=== PATIENT | male | born 1970 | race Caucasian/White ===

== ENCOUNTER 2016-11-09 09:43 | Inpatient (IN) | payer OTHER ==
[~2016-11-09] VITALS: Ht 172.7 cm; Wt 96.8 kg
[2016-11-09] MEDS ORDERED: SODIUM CHLORIDE 0.9% 1000ML 500 ML IV STA (10:20)
[2016-11-09] MEDS ORDERED: SODIUM CHLORIDE 0.9% 1000ML 1,000 ML IV STA (10:20)
[2016-11-09 10:41] LABS: INR 1.1 (0.9-1.1); PARTIAL THROMBOPLASTIN RATIO 0.9; PROTHROMBIN TIME (PATIENT) 11.4 SECONDS (9.0-12.0)
--- NOTE | 2016-11-09 10:41 | DIAGNOSTIC IMAGING REPORT ---
CHEST ONE VIEW PORTABLE CLINICAL HISTORY: Overdose dyspnea COMPARISON STUDY: None FINDINGS: Poor inspiratory volumes. Possible parenchymal infiltrate left base. Mild prominence pulmonary vasculature. IMPRESSION: Mild pulmonary vascular congestion.] Clavicle a parenchymal infiltrate versus atelectasis left base. Electronically signed by: Bipin Felder M.D. 11/09/2016 10:40 AM Dictated Date/Time: 11/09/2016 10:39 AM
[2016-11-09 10:46] LABS: ALT/SGPT 94 U/L (12-78); AST/SGOT 38 U/L (15-37); BLOOD UREA NITROGEN 12 mg/dl (7-18); BUN/CREATININE RATIO 8.6 (10-20); CALCIUM 8.2 mg/dl (8.5-10.1); CARBON DIOXIDE 29 mmol/L (21-32); CHLORIDE 107 mmol/L (98-107); GLUCOSE 91 mg/dl (70-99); POTASSIUM 3.7 mmol/L (3.5-5.1); SODIUM 141 mmol/L (136-145)
[2016-11-09 10:48] LABS: HEMATOCRIT 44.9 % (42-52); MEAN CELL VOLUME 82.7 fL (80-100); MEAN CORPUSCULAR HEMOGLOBIN 30.4 pg (25-34); MEAN CORPUSCULAR HGB CONC 36.7 g/dl (32-36); MEAN PLATELET VOLUME 9.4 fL (7.4-10.4); PLATELET COUNT 205 K/uL (130-400); RED BLOOD COUNT 5.43 M/uL (4.7-6.1)
[2016-11-09 10:50] LABS: ALKALINE PHOSPHATASE 92 U/L (45-117)
[2016-11-09] MEDS ORDERED: CEFTRIAXONE SOD INJ 1 GM ADDVIAL IV STA (10:52)
[2016-11-09] MEDS ORDERED: ONDA4TAB46 PO (11:10)
[2016-11-09] MEDS ORDERED: BENZ100C84 PO (11:10)
[2016-11-09] MEDS ORDERED: TRAM-10 PO (11:10)
[2016-11-09] MEDS ORDERED: RIZA10TA18 PO (11:10)
[2016-11-09] MEDS ORDERED: [UNRECOGNIZED DRUG - CODE] PO (11:10)
[2016-11-09] MEDS ORDERED: CPR500 PO (11:10)
[2016-11-09] MEDS ORDERED: DICL75TA2 PO (11:10)
[2016-11-09] MEDS ORDERED: CEFU500T16 PO (11:10)
[2016-11-09] MEDS ORDERED: CLC/300 PO (11:10)
[2016-11-09] MEDS ORDERED: MELO15TA4 PO (11:10)
[2016-11-09] MEDS ORDERED: LEVO1TAB33 PO (11:10)
[2016-11-09] MEDS ORDERED: CYCL5TAB PO (11:10)
[2016-11-09] MEDS ORDERED: HYDR-4079 PO (11:10)
[2016-11-09] MEDS ORDERED: DIPH1LIQ PO (11:17)
[2016-11-09] MEDS ORDERED: CLR10 PO (11:17)
[2016-11-09] MEDS ORDERED: ASPI81TA28 PO (11:17)
[2016-11-09] MEDS ORDERED: DIPH1TAB PO (11:17)
[2016-11-09] MEDS ORDERED: TRAZ50TA35 PO (11:24)
[2016-11-09] MEDS ORDERED: HYDR50CA2 PO ×2 (11:24→12:26)
[2016-11-09] MEDS ORDERED: RISP1TAB68 PO (11:24)
[2016-11-09] MEDS ORDERED: NALT50TA5 PO (11:24)
[2016-11-09 11:29] LABS: URINE APPEARANCE CLEAR (CLEAR); URINE BILIRUBIN NEG (NEG); URINE COLOR DK YELLOW; URINE NITRITE NEG (NEG); URINE SPECIFIC GRAVITY 1.042 (1.000-1.030); UROBILINOGEN NEG (NEG); ZZURINE CULT IF INDIC CATH NO
[2016-11-09 11:30] LABS: MANUAL MICROSCOPIC REQUIRED? NO; REVIEW REQ? NO
[2016-11-09] MEDS ORDERED: DEXTROSE 5% IV ONE (11:30)
[2016-11-09] MEDS ORDERED: ACETYLCYSTEINE IV ONE (11:30)
--- NOTE | 2016-11-09 11:30 | DIAGNOSTIC IMAGING REPORT ---
HEAD CT NONCONTRAST CT DOSE: 614.27 mGy.cm HISTORY: Mental status change OVERDOSE TECHNIQUE: Multiaxial CT images of the head were performed without the use of intravenous contrast. Comparison: None. Findings: The paranasal sinuses and mastoid air cells are clear. The calvarium and skull base are intact. The ventricles and sulci are within normal limits. There is no mass, hematoma, midline shift, or acute infarct. Impression: No acute intracranial abnormality. Electronically signed by: Bipin Felder M.D. 11/09/2016 11:29 AM Dictated Date/Time: 11/09/2016 11:28 AM
[2016-11-09 12:00] LABS: COCAINE,URINE NEG (NEG)
[2016-11-09] MEDS ORDERED: ACETYLCYSTEINE IV SCH ×2 (12:31→16:33)
[2016-11-09] MEDS ORDERED: DEXTROSE 5% IV SCH ×2 (12:31→16:33)
--- NOTE | 2016-11-09 13:34 | History and Physical ---
History & Physical Date & Time of Service: Nov 09, 2016 at 13:14 Chief Complaint: Overdose Primary Care Physician: No Doctor, Assigned History of Present Illness Source: patient This is a 45 y/o male with PMHx of Depression/Anxiety with prior suicide attempts who presents to the ED after an overdose that occurred sometime last night. She found several empty bottles of pills last night around 1715. The full list of medications ingested is on paper chart. The exact time that the patient took the medications is unknown however suspects it was sometime around 1700. Pt was also drinking beer all afternoon/evening. suspects he may have drank up to 20-30 beers. The patient was found in his vehicle this morning, where he spent the whole night. He has admitted to drinking alcohol and taking pills. Per 302 petition, the patient's stated that the patient has made comments of hanging himself in the past. She also stated that the patient threatened to kill her and shoot her coworkers. The patient was discharged from [facility] last week on Thursday. Per , she and her are recently after 16 years of marriage and he has not been handling it well. Patient unable to add additional history at this point due to altered mental status. In the ED, vitals are stable. Labs + mildly elevated LFTs. ETOH level 86. Tylenol level 12. CXR + mild pulm vasc congestion and L base infiltrate vs. atelectasis. Head CT is negative. EKG: NSR with no QTc prolongation. Pt is somnolent but stable and will be admitted for further evaluation and treatment. Past Medical/Surgical History Medical Problems: (1) Anxiety Status: Chronic (2) Depression Status: Chronic (3) Insomnia Status: Chronic Family History Patient reports no known family medical history. Social History Smoking Status: Never Smoker Alcohol Use: heavy (per family, up to 20-30 beers in one day (not every day)) Marital Status: in relationship () Housing status: lives alone Allergies Coded Allergies: Prednisone (Unverified Allergy, Unknown, DOES NOT TOLERATE, 11/09/16) Home Medications Scheduled Naltrexone Hcl (Naltrexone Hcl), 50 MG PO DAILY Risperidone (Risperdal), 1 MG PO BID Scheduled PRN Hydroxyzine Pamoate (Vistaril), 50 MG PO QID PRN for Anxiety Trazodone Hcl (Trazodone), 50 MG PO HS PRN for Sleep Review of Systems Unable to obtain ROS due to AMS Physical Exam Vital Signs Date Time Temp Pulse Resp B/P Pulse Ox O2 Delivery O2 Flow Rate FiO2 11/09/16 10:35 96 Nasal Cannula 2.0 11/09/16 10:13 86 21 98 11/09/16 10:10 111/88 11/09/16 09:58 94 11/09/16 09:53 36.6 89 16 111/88 90 Room Air 11/09/16 09:49 128/91 General Appearance: WD/WN, no apparent distress, + pertinent finding (Pt is laying in bed appearing somnolent ) Head: normocephalic, atraumatic Eyes: normal inspection, PERRL ENT: hearing grossly normal Neck: supple Respiratory/Chest: chest non-tender, lungs clear, normal breath sounds, no respiratory distress Cardiovascular: regular rate, rhythm, no edema, no murmur Abdomen/GI: normal bowel sounds, non tender, soft Back: normal inspection Extremities/Musculoskelatal: normal inspection, no calf tenderness, no pedal edema Neurologic/Psych: oriented x 3, + pertinent finding (arousable; very drowsy/ somnolent ) Skin: normal color, warm/dry Diagnostics Laboratory Results Results Past 24 Hours Test 11/09/16 09:50 11/09/16 10:44 11/09/16 10:59 Range/Units White Blood Count 5.60 4.8-10.8 K/uL Red Blood Count 5.43 4.7-6.1 M/uL Hemoglobin 16.5 14.0-18.0 g/dL Hematocrit 44.9 42-52 % Mean Corpuscular Volume 82.7 80-100 fL Mean Corpuscular Hemoglobin 30.4 25-34 pg Mean Corpuscular Hemoglobin Concent 36.7 32-36 g/dl RDW Standard Deviation 37.4 36.4-46.3 fL RDW Coefficient of Variation 12.5 11.5-14.5 % Platelet Count 205 130-400 K/uL Mean Platelet Volume 9.4 7.4-10.4 fL Prothrombin Time 11.4 9.0-12.0 SECONDS Prothromb Time International Ratio 1.1 0.9-1.1 Activated Partial Thromboplast Time 24.2 21.0-31.0 SECONDS Partial Thromboplastin Ratio 0.9 Sodium Level 141 136-145 mmol/L Potassium Level 3.7 3.5-5.1 mmol/L Chloride Level 107 98-107 mmol/L Carbon Dioxide Level 29 21-32 mmol/L Anion Gap 5.0 3-11 mmol/L Blood Urea Nitrogen 12 7-18 mg/dl Creatinine 1.40 0.60-1.40 mg/dl Estimated GFR () 70.3 Estimated GFR (Non- 60.7 BUN/Creatinine Ratio 8.6 10-20 Random Glucose 91 70-99 mg/dl Calcium Level 8.2 8.5-10.1 mg/dl Total Bilirubin 0.7 0.2-1 mg/dl Aspartate Amino Transf (AST/SGOT) 38 15-37 U/L Alanine Aminotransferase (ALT/SGPT) 94 12-78 U/L Alkaline Phosphatase 92 45-117 U/L Troponin I < 0.015 0-0.045 ng/ml Total Protein 7.8 6.4-8.2 gm/dl Albumin 3.8 3.4-5.0 gm/dl Globulin 4.0 2.5-4.0 gm/dl Albumin/Globulin Ratio 1.0 0.9-2 Salicylates Level 5.2 2.8-20 mg/dl Acetaminophen Level 12 10-30 ug/ml Ethyl Alcohol mg/dL 86.0 0-3 mg/dl Urine Color DK YELLOW Urine Appearance CLEAR CLEAR Urine pH 5.0 4.5-7.5 Urine Specific [place] 1.042 1.000-1.030 Urine Protein TRACE NEG Urine Glucose (UA) NEG NEG Urine Ketones TRACE NEG Urine Occult Blood NEG NEG Urine Nitrite NEG NEG Urine Bilirubin NEG NEG Urine Urobilinogen NEG NEG Urine Leukocyte Esterase NEG NEG Urine WBC (Auto) 1-5 0-5 /hpf Urine RBC (Auto) 0-4 0-4 /hpf Urine Hyaline Casts (Auto) 5-10 0-5 /lpf Urine Epithelial Cells (Auto) 10-20 0-5 /lpf Urine Bacteria (Auto) NEG NEG Urine Methadone, Qualitative NEG NEG Ur Amphetamine/Methamphetamine NEG NEG Urine Cocaine Metabolite NEG NEG Urine Marijuana (THC) NEG NEG Diagnostic Radiology CXR IMPRESSION: Mild pulmonary vascular congestion.] Clavicle a parenchymal infiltrate versus atelectasis left base CT HEAD IMPRESSION: No acute intracranial abnormality. EKG EKG: NSR at 89 bpm with no acute abnormalities noted; no prior EKG available for comparison Impression Assessment and Plan INTENTIONAL MULTI-DRUG OVERDOSE took assortment of pills along with alcohol last night; h/o anxiety/depression/ suicide attempt; recently from ; discharged from [facility] last week; pt has 302 order (in chart) -admit to telemetry -vitals are stable; EKG NSR -LFTs mildly elevated -Tox screen-pending -recheck labs and EKG @1600 -cont IVF and acetylcysteine protocol -hold all meds for now -one-on-one observation; suicide precautions -consult psychDr. Joseph-pending input -monitor INFILTRATES ON CXR; POSSIBLE ASPIRATION PNEUMONIA -CXR + mild pulm vasc congestion and L base infiltrate vs. atelectasis -start empiric Rocephin -monitor DVT PROPHYLAXIS -subq Lovenox CODE STATUS -FULL CODE DISPO -Pt seen in collaboration with Dr. Tabor. Please see his addendum foe further details. Thanks! Attending Addendum Pt was seen and examined. Agreed with Moni's ALDO exam, assessment and plan. 45 y/o male with PMHx of Depression/Anxiety, suicide attempts in the past was brought to the ED after an overdose that occurred last night. found several empty bottles of pills. The list of medications ingested is on his paper chart. he also drank a lot of alcohol last night. He made comments that he would hang himself, kill his and co-worker. Pt lying in bed very lethargy. Vitals are stable. General- drowsy, unable to keep eyes open Head- atraumatic Eyes- PERRL, unable to keep eyes open ENT- oropharynx clear Neck- supple, no JVD Lungs- clear to auscultation and percussion Heart- regular rhythm; no murmur Abdomen- normal bowel sounds, soft Extremities- no calf tenderness Neuro- drowsy, no facial palsy; no dysarthria Skin- warm & dry A/P INTENTIONAL DRUG OVERDOSE Took unknown quantity of multiple medications Will admit to telemetry Will monitor VS Repeat CMP and EKG @ 1600 cont IVF and acetylcysteine protocol Will watch him for volume overload one-on-one observation suicide precautions Cannot sign AMA consult psych, Dr. Turk-pending input I reviewed Lab, imaging and EKG Please refer to Moni's PA documentation for other problems Deepthi Tabor MD VTE Prophylaxis VTE Risk Assessment Done? Y/N: Yes Risk Level: Moderate
[2016-11-09 14:02] VITALS: BP 126/93; PULSE 96; TEMP 36.7; O2SAT 97; Ht 172.7 cm; Wt 96.8 kg
--- NOTE | 2016-11-09 14:18 | EMERGENCY ROOM VISIT NOTE ---
History Report prepared by Marti: Kenneth Brown Under the Supervision of: Dr. Jesse Orr M.D. First contact with patient: 10:12 Chief Complaint: OVERDOSE (INTENTIONAL) Stated Complaint: OVERDOSE History of Present Illness The patient is a 45 year old male who presents to the Emergency Room with complaints of an acute overdose that occurred sometime last night. The exact time that the patient took the medications is unknown. The patient was found in his vehicle this morning, where he spent the whole night. He has admitted to drinking alcohol and taking pills. The patient's found several empty bottles of pills last night. Per 302 petition, the patient's stated that the patient has made comments of hanging himself. She also stated that the patient threatened to kill her and shoot her coworkers. The patient was discharged from [facility] last week. When asked if he wants to kill himself the patient does not give a clear answer. History is limited secondary to mental status of the patient. Source of History: patient, other (302 petition) Onset: last night Position: other (global) Quality: other (intentional overdose) Timing: other (acute) Review of Systems ROS is limited secondary to mental status of the patient. Past Medical & Surgical Medical Problems: (1) Anxiety (2) Depression (3) Insomnia (4) Overdose Family History Patient reports no known family medical history. Social History Smoking Status: Never Smoker Marital Status: Current/Historical Medications Scheduled Naltrexone Hcl (Naltrexone Hcl), 50 MG PO DAILY Risperidone (Risperdal), 1 MG PO BID Scheduled PRN Hydroxyzine Pamoate (Vistaril), 50 MG PO QID PRN for Anxiety Trazodone Hcl (Trazodone), 50 MG PO HS PRN for Sleep Allergies Coded Allergies: Prednisone (Unverified Allergy, Unknown, DOES NOT TOLERATE, 11/09/16) Physical Exam Vital Signs Date Time Temp Pulse Resp B/P Pulse Ox O2 Delivery O2 Flow Rate FiO2 11/09/16 12:07 84 17 141/91 97 Room Air 11/09/16 10:35 96 Nasal Cannula 2.0 11/09/16 10:13 86 21 98 11/09/16 10:10 111/88 11/09/16 09:58 94 11/09/16 09:53 36.6 89 16 111/88 90 Room Air 11/09/16 09:49 128/91 Physical Exam GENERAL: Patient is in no acute distress. HEENT: No acute trauma, normocephalic atraumatic, mucous membranes are dry, no nasal congestion, no scleral icterus, pupils are equal and reactive to light, NECK: No stridor, no adenopathy, no meningismus, trachea is midline. LUNGS: Clear to auscultation bilaterally, no wheeze, no rhonchi, breath sounds equal. HEART: Without murmurs gallops or rubs, regular rate and rhythm. ABDOMEN: Soft, nontender, bowel sounds positive, no hernias, no peritonitis. EXTREMITIES: No cyanosis or edema, full range of motion of all the joints without pain or difficulty, no signs for acute trauma. NEUROLOGIC: Somnolent, arouses to voice and touch, no focal neuro neurological deficits. SKIN: No rash, no jaundice, no diaphoresis. PSYCH: Cooperative, states that he is not sure if he was trying to kill himself or not, very somnolent. Medical Decision & Procedures ER Provider Diagnostic Interpretation: X ray results and stated below per my interpretation and radiologist interpretation. Other radiology results and stated below per my review and radiologist interpretation: CHEST ONE VIEW PORTABLE CLINICAL HISTORY: Overdose dyspnea COMPARISON STUDY: None FINDINGS: Poor inspiratory volumes. Possible parenchymal infiltrate left base. Mild prominence pulmonary vasculature. IMPRESSION: Mild pulmonary vascular congestion.] Clavicle a parenchymal infiltrate versus atelectasis left base. Electronically signed by: Bipin Felder M.D. 11/09/2016 10:40 AM Dictated Date/Time: 11/09/2016 10:[address]AST CT DOSE: 614.27 mGy.cm HISTORY: Mental status change OVERDOSE TECHNIQUE: Multiaxial CT images of the head were performed without the use of intravenous contrast. Comparison: None. Findings: The paranasal sinuses and mastoid air cells are clear. The calvarium and skull base are intact. The ventricles and sulci are within normal limits. There is no mass, hematoma, midline shift, or acute infarct. Impression: No acute intracranial abnormality. Electronically signed by: Bipin Feledr M.D. 11/09/2016 11:29 AM Dictated Date/Time: 11/09/2016 11:28 AM Laboratory Results 11/09/16 09:50 Test 11/09/16 09:50 11/09/16 10:44 11/09/16 10:59 Red Blood Count 5.43 M/uL (4.7-6.1) Mean Corpuscular Volume 82.7 fL (80-100) Mean Corpuscular Hemoglobin 30.4 pg (25-34) Mean Corpuscular Hemoglobin Concent 36.7 g/dl (32-36) RDW Standard Deviation 37.4 fL (36.4-46.3) RDW Coefficient of Variation 12.5 % (11.5-14.5) Mean Platelet Volume 9.4 fL (7.4-10.4) Prothrombin Time 11.4 SECONDS (9.0-12.0) Prothromb Time International Ratio 1.1 (0.9-1.1) Activated Partial Thromboplast Time 24.2 SECONDS (21.0-31.0) Partial Thromboplastin Ratio 0.9 Troponin I < 0.015 ng/ml (0-0.045) Salicylates Level 5.2 mg/dl (2.8-20) Acetaminophen Level 12 ug/ml (10-30) Ethyl Alcohol mg/dL 86.0 mg/dl (0-3) Urine Color DK YELLOW Urine Appearance CLEAR (CLEAR) Urine pH 5.0 (4.5-7.5) Urine Specific [place] 1.042 (1.000-1.030) Urine Protein TRACE (NEG) Urine Glucose (UA) NEG (NEG) Urine Ketones TRACE (NEG) Urine Occult Blood NEG (NEG) Urine Nitrite NEG (NEG) Urine Bilirubin NEG (NEG) Urine Urobilinogen NEG (NEG) Urine Leukocyte Esterase NEG (NEG) Urine WBC (Auto) 1-5 /hpf (0-5) Urine RBC (Auto) 0-4 /hpf (0-4) Urine Hyaline Casts (Auto) 5-10 /lpf (0-5) Urine Epithelial Cells (Auto) 10-20 /lpf (0-5) Urine Bacteria (Auto) NEG (NEG) Urine Opiates Screen (NEG) Urine Methadone, Qualitative NEG (NEG) Urine Barbiturates (NEG) Urine Phencyclidine (PCP) Level (NEG) Ur Amphetamine/Methamphetamine NEG (NEG) MDMA (Ecstasy) Screen POS (NEG) Urine Benzodiazepines Screen (NEG) Urine Cocaine Metabolite NEG (NEG) Urine Marijuana (THC) NEG (NEG) Laboratory results reviewed by me. Medications Administered Medications (Trade) Dose Ordered Sig/Daren Route Start Time Stop Time Status Last Admin Dose Admin Sodium Chloride 500 ml @ 999 mls/hr Q31M STAT IV 11/09/16 10:20 11/09/16 10:50 DC 11/09/16 10:58 999 MLS/HR Sodium Chloride (Nss 1000ml) 1,000 ml @ 200 mls/hr Q5H STAT IV 11/09/16 10:20 11/09/16 13:47 DC 11/09/16 11:40 200 MLS/HR Ceftriaxone Sodium 1 gm 1 gm NOW STAT IV 11/09/16 10:52 11/09/16 10:53 DC 11/09/16 12:04 1 GM Acetylcysteine 31460 mg/Dextrose 273.5 ml @ 273 mls/hr 1130 ONCE IV 11/09/16 11:30 11/09/16 12:30 DC 11/09/16 12:02 273 MLS/HR Sodium Chloride (Nss 1000ml) 1,000 ml @ 150 mls/hr Q6H40M IV 11/09/16 12:18 12/09/16 12:17 11/09/16 15:32 150 MLS/HR ECG Indication: toxicologic Rate (beats per minute): 89 Rhythm: normal sinus Findings: no acute ischemic change, no ectopy ED Course 1015: The patient was evaluated in room A7. A complete history and physical exam was performed. 1020: NSS 1000 ml @ 200 mls/hr, NSS 500 ml @ 999 mls/hr. 1052: Rocephin 1 gm IV. 1128: Spoke with Moni Newman PA-C, [facility] Hospitalist. The patient will be evaluated. 1130: Talked with the patient's family at length. We will start him on NEC for possible Tylenol overdose. Pharmacy is aware. 1130: Acetylcysteine 21734 mg / dextrose 273.5 ml @ 273 mls/hr. 1231: Acetylcysteine 4900 mg / dextrose 524.5 ml @ 131 mls/hr. 1633: Acetylcysteine 9800 mg / dextrose 1049 ml @ 65 mls/hr. Medical Decision Differential diagnosis includes suicide attempt, multi-medication overdose, intracranial bleeding, dehydration, electrolyte imbalance, anemia, infection, aspiration. There is no leukocytosis or concerning anemia. No significant electrolyte abnormality or kidney failure. A very mild hepatitis was noted. There was no coagulopathy. Alcohol level was mildly elevated in the 80s. Aspirin and Tylenol levels are also slightly elevated although not toxic. Urine tox showed possibly ecstasy. Urinalysis did not show infection. Chest film showed atelectasis versus a small pneumonia at the left base. Brain CT showed no acute bleed or mass effect. The patient was brought in after a multi drug overdose. He was aggressively managed. When I noticed the slight elevation in the liver enzymes and the slight elevation to the Tylenol level, I did contact the pharmacy and the N acetylcysteine protocol was instituted IV. The patient was given IV saline for hydration. He received IV ceftriaxone for the potential aspiration pneumonia noted on chest x-ray. I spoke to the patient's family at length, I talked to the patient, admission/ observation medically is warranted. He will require close monitoring and serial laboratory testing to evaluate his liver function. The patient can be seen by psychiatry once he is medically more stable. Consults Time Called: 1120 Consulting Physician: Moni Newman PA-C, [facility] Hospitalist. Returned Call: 1128 1128: [facility] The patient will be evaluated. Impression Primary Impression: Multiple drug overdose Additional Impression: Suicidal ideation Critical Care I have personally spent greater than 35 minutes of critical care time in the direct management of this patient. This includes bedside care, interpretation of diagnostic studies, and testing, discussion with consultants, patient, and family members, and other required patient management activities. This 35 minutes is in excess of all separately billable procedures. Scribe Attestation The scribe's documentation has been prepared under my direction and personally reviewed by me in its entirety. I confirm that the note above accurately reflects all work, treatment, procedures, and medical decision making performed by me. Departure Information Dispostion Being Evaluated By Hospitalist Referrals No Doctor, Assigned (PCP) Patient Instructions My [facility] Problem Qualifiers
[2016-11-09 15:17] VITALS: BP 135/90; PULSE 85; O2SAT 97
[2016-11-09] MEDS: SODIUM CHLORIDE 0.9% 1000ML 1,000 ML IV SCH ×2 (15:32→22:47)
[2016-11-09 16:00] VITALS: BP 148/86; PULSE 83; O2SAT 98
[2016-11-09 17:12] LABS: ALB/GLOB RATIO 1.1 (0.9-2); BUN/CREATININE RATIO 8.5 (10-20); CALCIUM 7.7 mg/dl (8.5-10.1); CREATININE 1.4 mg/dl (0.60-1.40); POTASSIUM 4.3 mmol/L (3.5-5.1)
[2016-11-09 20:00] VITALS: O2SAT 98
[2016-11-09 23:34] VITALS: BP 138/80; PULSE 81; TEMP 36.5; O2SAT 98
[2016-11-10] VITALS (10 sets, daily range): BP systolic 127–153; BP diastolic 74–91; PULSE 66–95; TEMP 36.7–37.6; O2SAT 96–99
[2016-11-10] MEDS: SODIUM CHLORIDE 0.9% 1000ML 1,000 ML IV SCH ×3 (02:37→13:47)
[2016-11-10 05:36] LABS: BENZODIAZEPINE, URINE NEG (NEG); COCAINE,URINE NEG (NEG); PHENCYCLIDINE, URINE NEG (NEG)
[2016-11-10 05:55] LABS: HEMATOCRIT 40.6 % (42-52); MEAN CELL VOLUME 82.2 fL (80-100); MEAN CORPUSCULAR HEMOGLOBIN 29.1 pg (25-34); MEAN CORPUSCULAR HGB CONC 35.5 g/dl (32-36); MEAN PLATELET VOLUME 9.4 fL (7.4-10.4); PLATELET COUNT 154 K/uL (130-400); RED BLOOD COUNT 4.94 M/uL (4.7-6.1); WHITE BLOOD COUNT 8.52 K/uL (4.8-10.8)
[2016-11-10 06:14] LABS: INR 1.1 (0.9-1.1); PROTHROMBIN TIME (PATIENT) 11.5 SECONDS (9.0-12.0)
[2016-11-10 06:30] LABS: ALB/GLOB RATIO 0.9 (0.9-2); BUN/CREATININE RATIO 7.7 (10-20); CALCIUM 7.2 mg/dl (8.5-10.1); CREATININE 1.3 mg/dl (0.60-1.40); POTASSIUM 3.4 mmol/L (3.5-5.1)
--- NOTE | 2016-11-10 08:50 | Progress Note ---
Progress Note case discussed with Poison Control (Daisy), about liver enzymes trending up. Recommend to continue the acetylcysteine. repeat liver enzymes in am. continue IV fluid. will repeat salicylate level, carboxyhemoglobin.
--- NOTE | 2016-11-10 09:21 | Psych Management Progress Note ---
Psychiatry Miscellaneous Date of Service: Nov 10, 2016. Mr. Musa refused to meet with liaison and is currently pretending to sleep/ ignoring me with 1-on-1 at bedside. I reviewed the 302 petition by his which includes substances OD on at home--mainly mix of antibiotics, etc not alot re: psych meds. High risk patient given recent hospitalization at [facility] [place] [place] and substance abuse, separation from with homicidal statements. Full MSE will be completed when patient more awake/cooperative, he will require a 302 commitment given OD and above risk factors.
[2016-11-10] MEDS ORDERED: POTASSIUM CHLORIDE 10 MEQ TABCR PO ONE (09:30)
[2016-11-10] MEDS ORDERED: CEFTRIAXONE SOD INJ 1 GM in DEXTROSE 5% ADD-VANTAGE 50ML 50 ML IV SCH (12:00)
[2016-11-10] MEDS: POTASSIUM CHLR 10 MEQ / WTR 10 MEQ in PREMIXED WATER 100 ML IV SCH ×3 (13:45→16:40)
--- NOTE | 2016-11-10 17:39 | Progress Note ---
Medicine Progress Note Date & Time of Visit: Nov 10, 2016 at 17:07. Subjective Pt was seen and examined Sitting in bed comfortable with son and mother at bedside he was very calm and listen to me he understands that he cannot sign AMA Pt said is fully awake, with no distress He denies any hallucination and suicidal thought at this time He denies any complaint such as chest pain, palpitation, dizziness and SOB Objective Last 8 Hrs Date Time Temp Pulse Resp B/P Pulse Ox O2 Delivery O2 Flow Rate FiO2 11/10/16 15:53 37.6 95 18 137/90 98 2.0 11/10/16 12:00 36.9 76 16 140/89 97 Nasal Cannula 2.0 153/90 Physical Exam: General- awake, no distress Head- atraumatic Eyes- PERRL, EOMI, no nystagmus ENT- oropharynx clear Neck- supple, no JVD Lungs- clear to auscultation and percussion Heart- regular rhythm; no murmur Abdomen- normal bowel sounds, soft Extremities- no pretibial edema, no calf tenderness Neuro- alert, oriented x 3; PERRL, EOMI; no facial palsy, no tremor Skin- warm & dry Laboratory Results: Last 24 Hours Test 11/09/16 19:57 11/09/16 20:33 11/10/16 02:00 11/10/16 05:15 Osmolality 291 mOsm/kg Salicylates Level 16.1 mg/dl Acetaminophen Level 2 ug/ml Carboxyhemoglobin 0.0 % THgb Urine Opiates Screen POS Urine Methadone, Qualitative NEG Urine Barbiturates NEG Urine Phencyclidine (PCP) Level NEG Ur Amphetamine/Methamphetamine NEG MDMA (Ecstasy) Screen NEG Urine Benzodiazepines Screen NEG Urine Cocaine Metabolite NEG Urine Marijuana (THC) NEG White Blood Count 8.52 K/uL Red Blood Count 4.94 M/uL Hemoglobin 14.4 g/dL Hematocrit 40.6 % Mean Corpuscular Volume 82.2 fL Mean Corpuscular Hemoglobin 29.1 pg Mean Corpuscular Hemoglobin Concent 35.5 g/dl RDW Standard Deviation 37.1 fL RDW Coefficient of Variation 12.3 % Platelet Count 154 K/uL Mean Platelet Volume 9.4 fL Prothrombin Time 11.5 SECONDS Prothromb Time International Ratio 1.1 Sodium Level 144 mmol/L Potassium Level 3.4 mmol/L Chloride Level 109 mmol/L Carbon Dioxide Level 23 mmol/L Anion Gap 12.0 mmol/L Blood Urea Nitrogen 10 mg/dl Creatinine 1.30 mg/dl Est Creatinine Clear Calc Drug Dose 81.8 ml/min Estimated GFR () 76.9 Estimated GFR (Non- 66.4 BUN/Creatinine Ratio 7.7 Random Glucose 77 mg/dl Calcium Level 7.2 mg/dl Total Bilirubin 1.2 mg/dl Aspartate Amino Transf (AST/SGOT) 46 U/L Alanine Aminotransferase (ALT/SGPT) 87 U/L Alkaline Phosphatase 67 U/L Total Protein 5.8 gm/dl Albumin 2.7 gm/dl Globulin 3.1 gm/dl Albumin/Globulin Ratio 0.9 Test 11/10/16 12:08 Bedside Glucose 79 mg/dl Assessment & Plan Assessment and Plan INTENTIONAL DRUG OVERDOSE Took unknown quantity of multiple medications Pt is fully awaked D/C acetylcysteine protocol since liver enzymes trending down On IVF one-on-one observation suicide precautions Cannot sign AMA Psych on board will need inpatient psych Started on Diet INFILTRATES ON CXR; POSSIBLE ASPIRATION PNEUMONIA -CXR + mild pulm vasc congestion and L base infiltrate vs. atelectasis Afebrile, no leukocytosis On rocephin day 2 will change abx to po ALCOHOL INTOXICATION No signs of alcohol withdraw Might consider prophylaxis with Gabapentin Will restart naltrexone will monitor for alcohol withdraw HYPOKALEMIA Potassium replaced monitor BMP DVT PROPHYLAXIS -subq Lovenox CODE STATUS FULL CODE DISPOSITION Medically stable. will transfer to mental health for inpatient psych treatment Consultants: Psych Current Inpatient Medications: Current Inpatient Medications Medications (Trade) Dose Ordered Sig/Daren Route Start Time Stop Time Status Last Admin Dose Admin Sodium Chloride 1,000 ml @ 150 mls/hr Q6H40M IV 11/09/16 12:18 12/09/16 12:17 11/10/16 13:47 150 MLS/HR Ceftriaxone Sodium/Dextrose (Rocephin Inj/ Dextrose Add-[place] 50ML) 50 ml @ 100 mls/hr Q24H IV 11/10/16 12:00 11/16/16 12:44 11/10/16 13:44 100 MLS/HR
[2016-11-10] MEDS ORDERED: LEVO1TAB33 PO (20:52)
--- NOTE | 2016-11-10 20:57 | Discharge Instructions ---
Discharge Instructions Admission Reason for Admission: Overdose Discharge Discharge Diagnosis / Problem: Intentional drug overdose, Pneumonia, Elevated liver enzymes, Alcohol intox Discharge Goals Goal(s): Decrease discomfort, Improve function, Improve disease control Activity Recommendations Activity Limitations: resume your previous activity (as tolerated) . Instructions / Follow-Up Instructions / Follow-Up Transfer to inpatient psych for treatment Schedule follow up appointment with your PCP once discharge from mental health Monitor LFTs Complete antibiotic course Current Hospital Diet Patient's current hospital diet: Clear Liquid Diet Discharge Diet Recommended Diet: AHA Diet (Heart Healthy) Pending Studies Studies pending at discharge: no Medical Emergencies . Who to Call and When: Medical Emergencies: If at any time you feel your situation is an emergency, please call 911 immediately. . Non-Emergent Contact Non-Emergency issues call your: Primary Care Provider Call Non-Emergent contact if: you have any medication questions . . "Provider Documentation" section prepared by Deepthi Tabor. VTE Core Measure Inpt VTE Proph given/why not?: SCD's
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
[2016-11-13 18:57] LABS: COD UR NEGATIVE NG/ML (CUTOFF=50); HYDROCOD UR 2170 NG/ML (CUTOFF=50); HYDROMOR UR 89 NG/ML (CUTOFF=50); MORPHINE UR NEGATIVE NG/ML (CUTOFF=50); NORHYDROCODONE CONF UR 375 NG/ML (CUTOFF=50); OXYMORPH UR NEGATIVE NG/ML (CUTOFF=50)
== END 2016-11-10 22:30 | DRG 917 ==
LOC: ENRESERVTM → ENRESERVDT → EDBD 09:43 → C.EDA 09:46 → C.2E 12:21 → EDBEDREQ 12:26
PROVIDERS: ADMIT Internal Medicine; ATTEND Internal Medicine
DX: T50.902A Poisoning by unspecified drugs, medicaments and biological substances, intentional self-harm, initial encounter (principal); J69.0 Pneumonitis due to inhalation of food and vomit; R45.851 Suicidal ideations; F10.129 Alcohol abuse with intoxication, unspecified; E87.6 Hypokalemia; Y90.4 Blood alcohol level of 80-99 mg/100 ml; R45.850 Homicidal ideations; R94.5 Abnormal results of liver function studies; F41.9 Anxiety disorder, unspecified; F32.9 Major depressive disorder, single episode, unspecified; G47.00 Insomnia, unspecified; Z63.5 Disruption of family by separation and divorce; Z79.899 Other long term (current) drug therapy

== ENCOUNTER 2017-05-05 13:36 | Emergency (ER) | payer OTHER ==
[~2017-05-05] VITALS: Ht 170.2 cm; Wt 97.3 kg
[~2017-05-05 13:36] MED LIST: HYDR50CA2 PO; NALT50TA5 PO; RISP1TAB68 PO; TRAZ50TA35 PO
[2017-05-05 13:47] VITALS: TEMP 37.1; Ht 170.2 cm; Wt 97.3 kg
[2017-05-05] MEDS ORDERED: SODIUM CHLORIDE 0.9% 1000ML 1,000 ML IV STA (14:01)
[2017-05-05 15:17] LABS: BASO % 0.4 %; BASO ABS # 0.03 K/uL (0-0.2); COMPLETE YES; EOS % 2.2 %; HEMATOCRIT 44.2 % (42-52); IG% 0.3 %; LYMPH % 31.2 %; LYMPH ABS # 2.09 K/uL (1.2-3.4); MEAN CELL VOLUME 83.9 fL (80-100); MEAN CORPUSCULAR HEMOGLOBIN 28.8 pg (25-34); MEAN CORPUSCULAR HGB CONC 34.4 g/dl (32-36); MEAN PLATELET VOLUME 9.9 fL (7.4-10.4); MONO % 7.3 %; NEUT % 58.6 %; PLATELET COUNT 199 K/uL (130-400); RED BLOOD COUNT 5.27 M/uL (4.7-6.1)
[2017-05-05 15:26] LABS: BUN/CREATININE RATIO 13.9 (10-20); CALCIUM 8.9 mg/dl (8.5-10.1); CREATININE 1.4 mg/dl (0.60-1.40); POTASSIUM 3.6 mmol/L (3.5-5.1)
[2017-05-05 15:28] VITALS: BP 139/98; PULSE 71; O2SAT 97
--- NOTE | 2017-05-05 15:33 | EMERGENCY ROOM VISIT NOTE ---
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 EMS believes it was heat exhaustion. Patient reports drinking 3 bottles of gatorade while at work and was given water after syncopal episode occured. Patient denies pain, just complaining of little lightheaded. History of Present Illness The patient is a 46 year old male who presents to the Emergency Room via EMS with complaints of almost passing out. 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 The patient denies the room spinning or any headache. He denies any nausea or vomiting. The patient denies any chest pain or shortness of breath. The patient has never felt like this in the past. He states he only had a few small candy bars and Gatorade today. The patient also states that he has been told the past that his blood pressure was high but he is not on any medication. He is only seen a family physician on one occasion. Review of Systems 10 system review was performed and was negative unless stated otherwise history of present illness. Past Medical/Surgical History Medical Problems: (1) Anxiety (2) Depression (3) Dyslipidemia (4) GERD (gastroesophageal reflux disease) (5) Hx of juvenile rheumatoid arthritis (6) Insomnia (7) Lumbar disc disorder (8) Metabolic syndrome (9) Overdose Surgical Problems: (1) H/O colonoscopy (2) H/O esophagogastroduodenoscopy Family History FH: colon cancer GRANDMOTHER Social History Smoking Status: Never Smoker Marital Status: Current/Historical Medications Scheduled Naltrexone Hcl (Naltrexone Hcl), 50 MG PO DAILY Risperidone (Risperdal), 1 MG PO BID Scheduled PRN Hydroxyzine Pamoate (Vistaril), 50 MG PO QID PRN for Anxiety Trazodone Hcl (Trazodone), 50 MG PO HS PRN for Sleep Physical Exam Vital Signs Date Time Temp Pulse Resp B/P (MAP) Pulse Ox O2 Delivery O2 Flow Rate FiO2 05/05/17 15:28 71 16 139/98 97 Room Air 05/05/17 14:52 70 18 138/89 96 Room Air 05/05/17 13:47 37.1 73 18 169/97 94 Room Air 05/05/17 13:45 73 Physical Exam GENERAL: 46-year-old white male appears in no acute distress. MENTAL Status: Alert and oriented 3. EYES: PERRLA. EOMs intact. EARS: Canals clear. TMs without fluid level noted. NECK: Supple, no lymphadenopathy noted. No carotid bruits noted. LUNGS: Clear auscultation without wheezes rales or rhonchi. CARDIAC: Regular rate and rhythm without murmur. Pulses is full and equal throughout. ABDOMEN: Positive bowel sounds all 4 quadrants. Soft, nontender to palpation without organomegaly or masses. NEURO:Cranial nerves two through 12 intact. Cerebellar function intact with [id number]. Fine motor intact with alternating finger motions. Medical Decision & Procedures Laboratory Results 05/05/17 13:45 Red Blood Count 5.27, Mean Corpuscular Volume 83.9, Mean Corpuscular Hemoglobin 28.8, Mean Corpuscular Hemoglobin Concent 34.4, Mean Platelet Volume 9.9, Neutrophils (%) (Auto) 58.6, Lymphocytes (%) (Auto) 31.2, Monocytes (%) (Auto) 7.3, Eosinophils (%) (Auto) 2.2, Basophils (%) (Auto) 0.4, Neutrophils # (Auto) 3.92, Lymphocytes # (Auto) 2.09, Monocytes # (Auto) 0.49, Eosinophils # (Auto) 0.15, Basophils # (Auto) 0.03 05/05/17 13:45 Test 05/05/17 13:42 05/05/17 13:45 Bedside Glucose 119 mg/dl (70-99) White Blood Count 6.70 K/uL (4.8-10.8) Red Blood Count 5.27 M/uL (4.7-6.1) Hemoglobin 15.2 g/dL (14.0-18.0) Hematocrit 44.2 % (42-52) Mean Corpuscular Volume 83.9 fL (80-100) Mean Corpuscular Hemoglobin 28.8 pg (25-34) Mean Corpuscular Hemoglobin Concent 34.4 g/dl (32-36) Platelet Count 199 K/uL (130-400) Mean Platelet Volume 9.9 fL (7.4-10.4) Neutrophils (%) (Auto) 58.6 % Lymphocytes (%) (Auto) 31.2 % Monocytes (%) (Auto) 7.3 % Eosinophils (%) (Auto) 2.2 % Basophils (%) (Auto) 0.4 % Neutrophils # (Auto) 3.92 K/uL (1.4-6.5) Lymphocytes # (Auto) 2.09 K/uL (1.2-3.4) Monocytes # (Auto) 0.49 K/uL (0.11-0.59) Eosinophils # (Auto) 0.15 K/uL (0-0.5) Basophils # (Auto) 0.03 K/uL (0-0.2) RDW Standard Deviation 37.3 fL (36.4-46.3) RDW Coefficient of Variation 12.4 % (11.5-14.5) Immature Granulocyte % (Auto) 0.3 % Immature Granulocyte # (Auto) 0.02 K/uL (0.00-0.02) Anion Gap 8.0 mmol/L (3-11) Est Creatinine Clear Calc Drug Dose 74.1 ml/min Estimated GFR () 69.8 Estimated GFR (Non- 60.3 BUN/Creatinine Ratio 13.9 (10-20) Calcium Level 8.9 mg/dl (8.5-10.1) Medications Administered Medications (Trade) Dose Ordered Sig/Darne Route Start Time Stop Time Status Last Admin Dose Admin Sodium Chloride 1,000 ml @ 999 mls/hr Q1H1M STAT IV 05/05/17 14:01 05/05/17 15:01 DC 05/05/17 14:05 999 MLS/HR ECG Indication: other (near syncope) Rhythm: normal sinus Findings: no acute ischemic change Comparison ECG Date: no prior available ED Course The patient was evaluated. The patient's EMR medication list were reviewed. IV access was obtained and he was given 1 L normal saline wide-open. EKG was ordered interpreted by myself as above without any acute findings. CBC and differential, renal profile was ordered. As are reviewed. The patient's BUN was slightly elevated otherwise labs are unremarkable. The patient was reevaluated and was feeling much better. The patient was discharged home in stable condition. Medical Decision Differential diagnosis include syncope, near syncope, dehydration Medication Reconcilliation Current Medication List: was personally reviewed by or Blood Pressure Screening Patient's blood pressure: Normal blood pressure Impression Primary Impression: Dehydration Additional Impression: Near syncope Departure Information Dispostion Home / Self-Care Condition GOOD Referrals No Doctor, Assigned (PCP) Forms HOME CARE DOCUMENTATION FORM, IMPORTANT VISIT INFORMATION Patient Instructions My [employer] Additional Instructions Stay well-hydrated. Eat 3 meals per day. If he started feeling lightheaded sit down immediately. Rest for the remainder of today. Problem Qualifiers
== END 2017-05-05 15:48 | disposition home or self-care (01) ==
LOC: EDBD 13:36 → C.EDA 13:37
DX: E86.0 Dehydration (principal); R55 Syncope and collapse; F41.9 Anxiety disorder, unspecified; F32.9 Major depressive disorder, single episode, unspecified; E78.5 Hyperlipidemia, unspecified; K21.9 Gastro-esophageal reflux disease without esophagitis; E88.81 Metabolic syndrome and other insulin resistance; Z80.9 Family history of malignant neoplasm, unspecified; Z79.899 Other long term (current) drug therapy

== ENCOUNTER → 2017-07-11 | Outpatient (CLI) | payer OTHER | END | disposition home or self-care (01) | LOC: C.LAB 04:12 | DX: Z04.8 Encounter for examination and observation for other specified reasons (principal) ==